=== PATIENT | female | born 2000 | race Caucasian/White ===

== ENCOUNTER 2022-10-27 19:53 | Outpatient (CLI) | payer BC, SELFPAY ==
--- OUTSIDE RECORDS SUMMARY | 2022-10-30 11:17 | XMS_ITS ---
:2000 Author Organization [facility] [address] [facility] [place] [id number] Care Team Providers Name Role Phone Lyla Barnes Unavailable Unavailable PROBLEMS Unknown Problems ALLERGIES Substance Reaction Event Type Date Status Sesame Seed (Diagnostic) Unknown Drug Allergy Jul, Act shira Tree Nuts Unknown Drug Allergy Jul, Active [place] Nuts Unknown Drug Allergy Jul, Active ENCOUNTERS Encounter Location Date Diagnosis [address] Jul, [place] [id number] [address] Jul, Encounter for other general [place] [id number] counselin g and advice on contraception Z3 [...] Interested in Nexplanon Insurance Providers [facility] Member Patient Patient Patient Patient Patient Subscriber Subscriber Subscriber Group Insurance Plan Plan Plan Plan ID Relationship Address Phone Name Date of ID Name Date of No Type Insurance Insurance Insurance Coverage to Subscriber Address Phone Name Dates BLUE [id number] [phone] BLUE self Juhi [id number] J [id number] [place] [phone]
== END 2022-10-27 19:54 | disposition home or self-care (01) ==
LOC: AMB 10-30 11:15
PROVIDERS: Visit Provider Emergency Medicine Emergency Medical Services
DX: R55 Syncope and collapse (principal)
CPT/HCPCS: A0425; A0427

== ENCOUNTER 2022-10-27 20:22 | Emergency (ER) | payer BC, SELFPAY ==
[2022-10-27 20:30] VITALS: BP 101/65; PULSE 92; RESP 16; TEMP 36.6; O2SAT 95; BMI 21.1
--- NOTE | 2022-10-27 21:04 | ED_ITS ---
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 Patient has a male friend with her this evening. They note that they were involved in a green party with a lot of alcohol last night. In fact he states that Juhi passed out in her own vomit when she went to bed. She woke at 0300 hours with vomiting and diarrhea. She notes that this has continued throughout the day. This is often a normal reaction for her after drinking heavily but it usually stops by noon. She states that she has tried to drink water and she immediately vomits it up. She notes that she is otherwise healthy but again states that she is prone to fainting. She has not had any fainting today. She denies a fever and states that she will get some cramping but no significant belly pain. She has been urinating but notes that that is actually decreased. She has not been on any recent antibiotics or travel. She denies a possibility of as she has an IUD in place. No blood in vomit or stool. EMS monitor has an automatic CO detector which showed her level to be high at 13. Interestingly she lives in the dorms and her significant other with her only registered a 1. She has no shortness of breath, normal coloring, no confusion. She has not been exposed to any recent heat source. There have been no other cases of vomiting or diarrhea in the dorms although they do state COVID has been going around. Associated nausea: Yes Related Data Home Medications Medication Instructions Recorded Confirmed bupropion HCl 100 mg tablet 100 mg PO ONCE 05/21/22 10/27/22 sertraline 50 mg tablet 50 mg PO QDAY 05/21/22 10/27/22 Previous Rx's Medication Instructions Recorded azithromycin 250 mg tablet See Rx Instructions PO .COMPLEX #6 07/30/22 tabs Allergies Allergy/AdvReac Type Severity Reaction Status Date / Time amoxicillin AdvReac Verified 10/27/22 20:34 SESAME SEEDS Allergy Unknown tingling Uncoded 07/29/22 12:17 mouth TREE NUTS Allergy Unknown mouth Uncoded 07/29/22 12:17 tingling Review of Systems Status of ROS: Reports: 10 or more systems reviewed and unremarkable except as noted in History and below Const: Denies: fever or chills Eyes: Denies: change in vision ENMT: Denies: throat pain, neck pain, throat swelling, difficulty swallowing or hoarseness Cardio: Reports: lightheadedness (When standing up); Denies: chest pain, palpitations, swelling of feet/ankles or shortness of breath with exertion Resp: Denies: shortness of breath, cough or wheezing GI: Reports: nausea, vomiting and diarrhea; Denies: abdominal pain, difficulty swallowing or blood in stool Musculo: Denies: neck pain Integ/Breast: Denies: rash Neuro: Denies: headache, numbness in extremities or weakness in extremities Endo: Denies: excessive urination or excessive thirst Allergy/Immuno: Denies: throat swelling or wheezing PFSH PFSH Medical History Otitis externa Otitis media Social History Smoking Status: Never smoker Second hand tobacco smoke exposure: No How often do you have a drink containing alcohol: never How often do you have six or more drinks on one occasion: Never AUDIT-C Alcohol total score: 0 Non-prescribed substance use: denies use Exam Narrative: Exam Narrative: Alert and oriented. No acute distress. Smiling laughing and interactive. Eyes are clear. Neck is supple. Heart with a regular rate and rhythm. Lungs are clear bilaterally. Abdomen soft nontender. Moving all extremities. Const: Vital Signs, click to edit/add: Vital Signs - 24 hr 10/27/22 20:30 10/27/22 20:30 10/27/22 21:25 Temperature 98 F 98 F Pulse Rate Pulse Rate [Right Pulse Oximeter] 92 89 Respiratory Rate 16 16 Blood Pressure Blood Pressure [Ri ght Upper Arm] 101/65 107/78 Pulse Oximetry 95 95 95 Oxygen Delivery Me thod Room Air Room Air 10/27/22 21:16 Temperature Pulse Rate 89 Pulse Rate [Right Pulse Oximeter] Respiratory Rate 16 Blood Pressure 106/64 Blood Pressure [Ri ght Upper Arm] Pulse Oximetry 95 Oxygen Delivery Me thod Documenting provider has reviewed patient's vital signs: yes Course Course Hospital Course: At this time will check basic panel for electrolyte abnormalities as well as c/o although I think that this is a monitor malfunction. Will give 2 L normal saline as well as Zofran 4 mg IV. Reevaluation(s) Reevaluation #1: Patient noted to be eating crackers and drinking her effervescent potassium. Is feeling a lot better at this time. Will proceed with 2 L. plan on discharge home. Vital Signs Vital signs: Initial Vital Signs Temperature 98 F 10/27/22 20:30 Temperature Source Temporal Artery Scan 10/27/22 20:30 Pulse Rate 92 10/27/22 20:30 Pulse Rhythm 10/27/22 20:30 Respiratory Rate 16 10/27/22 20:30 Blood Pressure 101/65 10/27/22 20:30 Blood Pressure Mean 77 10/27/22 20:30 Blood Pressure Position Sitting 10/27/22 20:30 Pulse Oximetry 95 10/27/22 20:30 Oxygen Delivery Method 10/27/22 20:30 Vital Signs Temperature 98 F 10/27/22 20:30 Pulse Rate 92 10/27/22 20:30 Respiratory Rate 16 10/27/22 20:30 Blood Pressure 101/65 10/27/22 20:30 Pulse Oximetry 95 10/27/22 20:30 Oxygen Delivery Method 10/27/22 20:30 Temperature 98 F 10/27/22 21:25 Pulse Rate 89 10/27/22 21:25 Respiratory Rate 16 10/27/22 21:25 Blood Pressure 107/78 10/27/22 21:25 Pulse Oximetry 95 10/27/22 21:25 Oxygen Delivery Method 10/27/22 21:25 MDM - Nausea/Vomiting/Diarrhea MDM Narrative Medical decision making narrative: 1. Vomiting and nausea-this certainly could be secondary to a viral sore such as gastroenteritis but more likely this is secondary to recent alcohol intake from last night. Patient given 2 L normal saline and Zofran. Patient able to tolerate fluids and food without difficulty. 2. Hypokalemia-50 mEq potassium effervescent given to patient. 3. Disposition-home with significant other. Suggest moderation when using alcohol. Return as needed for worsening symptoms. Note patient had normal carbon monoxide level 2.5%. Medical Records Attestation: I reviewed the patient's medical records. Lab Data Attestation: I reviewed the patient's lab results. Labs: Lab Results 10/27/22 10/27/22 Range/Units 20:50 20:50 Carboxyhemoglobin 2.5 (0.0-5.0) % Sodium 133 L (135-149) mmol/L Potassium 3.2 L (3.6-5.1) mmol/L Chloride 103 (96-114) mmol/L Carbon Dioxide 25 (20-32) mmol/L BUN 17 (5-24) mg/dL Creatinine 0.6 (0.5-1.5) mg/dL Estimated Creat Clear 153.15 Estimated GFR 132 ml/min Glucose 125 H (60-115) mg/dL Calcium 8.3 L (8.4-10.6) mg/dL Discharge Plan Discharge Clinical Impression: Nausea vomiting and diarrhea, Hangover effect, Hypokalemia Patient Disposition: Home, Self-Care Condition: Improved Additional Instructions: Consider using alcohol in moderation. Push fluids. Return as needed. Prescriptions: No Action sertraline 50 mg tablet 50 mg PO QDAY bupropion HCl 100 mg tablet 100 mg PO ONCE azithromycin 250 mg tablet See Rx Instructions PO .COMPLEX Qty: 6 0RF Rx Instructions: For 250 mg dose pack: take 500 mg today (day 1), then 250 mg for 4 days (days 2-5) PO Follow Up/Referrals: Provider,Not a Local [Primary Care Provider] - Stand Alone Forms: [employer] Info Instructions
[2022-10-27] MEDS: 0.9 % SODIUM CHLORIDE 1000 ml 1,000 ML IV ×2 (21:09→22:15)
[2022-10-27] MEDS: ONDANSETRON 2 MG/ML inj 4 MG IVP (21:10)
[2022-10-27 21:13] LABS: Carboxyhemoglobin* 2.5 % (0.0-5.0)
[2022-10-27 21:16] VITALS: BP 106/64; PULSE 89; RESP 16; O2SAT 95
[2022-10-27 21:25] VITALS: BP 107/78; PULSE 89; RESP 16; TEMP 36.6; O2SAT 95
--- OUTSIDE RECORDS SUMMARY | 2022-10-27 21:25 | XMS_ITS ---
:2000 Author Organization [facility] [address] [facility] [place] [id number] Care Team Providers Name Role Phone Lyla Barnes Unavailable Unavailable PROBLEMS Unknown Problems ALLERGIES Substance Reaction Event Type Date Status Sesame Seed (Diagnostic) Unknown Drug Allergy Jul, Act shira Tree Nuts Unknown Drug Allergy Jul, Active [place] Nuts Unknown Drug Allergy Jul, Active ENCOUNTERS Encounter Location Date Diagnosis [address] Jul, [place] [id number] [address] Jul, Encounter for other general [place] [id number] counselin g and advice on contraception Z3 0.09 IMMUNIZATIONS No Known Immunizations SOCIAL HISTORY Qualifiers Date Never Smoker REASON FOR REFERRAL FUNCTIONAL STATUS PLAN OF CARE Activity Details Follow Up prn Reason: VITAL SIGNS Height 68.5 in 2021-08-10 Weight 144 lbs 2021-08-10 BMI 21.57 kg/m2 2021-08-10 Blood pressure systolic 110 mm Hg 2021-08-10 Blood pressure diastolic 60 mm Hg 2021-08-10 MEDICATIONS Medication Instructions Dosage Frequency Start End Duration Statu s Date Date EPINEPHrine as directed Active (Anaphylaxis) 30 MG/30ML Ortho Orally Once a 1 tablet 24h 28 day(s) Active Tri-Cyclen Lo day 0.18/0.215/0.25 MG-25 MCG Sertraline HCl Orally Once a 1 tablet 24h 30 day(s) Active 50 MG day Vitamin D-3 25 Orally Once a 1 capsule 24h 30 day(s) Active MCG (1000 UT) day PROCEDURES No Known procedures RESULTS No Results REASON FOR VISIT nexplanon insertion, Nexplanon, Interested in Nexplanon Insurance Providers [facility] Member Patient Patient Patient Patient Patient Subscriber Subscriber Subscriber Group Insurance Plan Plan Plan Plan ID Relationship Address Phone Name Date of ID Name Date of No Type Insurance Insurance Insurance Coverage to Subscriber Address Phone Name Dates BLUE [id number] [phone] BLUE self Juhi [id number] J [id number] [place] [phone]
[2022-10-27 21:30] LABS: Chloride* 103 mmol/L (96-114)
[2022-10-27 21:31] VITALS: BP 102/62; PULSE 83; O2SAT 96
[2022-10-27 21:31] LABS: Potassium* 3.2 mmol/L (3.6-5.1); Sodium* 133 mmol/L (135-149)
[2022-10-27 21:34] LABS: Blood Urea Nitrogen* 17 mg/dL (5-24); Calcium* 8.3 mg/dL (8.4-10.6); Carbon Dioxide* 25 mmol/L (20-32); Creatinine* 0.6 mg/dL (0.5-1.5); Est. Creatinine Clearance* 153.15; Estimated Glomerular Filt Rate 132 ml/min; Glucose* 125 mg/dL (60-115)
[2022-10-27 22:02] VITALS: BP 94/41; PULSE 83; O2SAT 96
[2022-10-27] MEDS: POTASSIUM BICARB 25 MEQ EFFERVESCENT TAB 50 MEQ PO (22:37)
--- NOTE | 2022-10-27 22:50 | ED.NURSE ---
patient up walking in room, denies dizzy or light headed, pt states she feels much better and requesting to dc, fluids completed.
[2022-10-27 22:52] VITALS: BP 101/57; PULSE 76; RESP 16
== END 2022-10-27 22:52 | disposition home or self-care (01) ==
PROVIDERS: Emergency Provider Family Medicine
DX: R11.2 Nausea with vomiting, unspecified (principal); E87.6 Hypokalemia; F10.129 Alcohol abuse with intoxication, unspecified
CPT/HCPCS: 36415; 80048; 82375; 94761; 96374; 99283; A9270; J2405; J7030

== ENCOUNTER 2022-11-19 18:40 | Emergency (ER) | payer BC, SELFPAY ==
[2022-11-19] VITALS (20 sets, daily range): BP systolic 101–125; BP diastolic 60–77; PULSE 72–88; RESP 16; O2SAT 96–100; BMI 21.4
[2022-11-19] MEDS: EPINEPHrine 0.3 MG PEN IM (18:50)
--- NOTE | 2022-11-19 18:50 | ED_ITS ---
HPI - Allergic Reaction General Time Seen by Provider: 18:50 Date Seen: 11/19/22 Chief complaint: Allergic Reaction Stated complaint: Allergic Reaction Time Seen by Provider: 11/19/22 18:40 Source: patient and RN notes reviewed Mode of arrival: ambulatory Limitations: no limitations History of Present Illness HPI narrative: Patient was seen at request of nursing staff due to allergic reaction right after arrival. Patient was eating out and unfortunately accidentally ate some sesame seeds which she is allergic to. Her face started flushing immediately, became nauseated in did have an emesis. She developed hives, felt like her throat was itchy. She never had any hoarse voice, did not feel like she was having any difficulty breathing. Did not feel like her tongue was swollen. Her nausea has improved since she threw up. She did have an EpiPen with her but they did not administer it. She has not taken anything for this allergic reaction. She has had this allergy since childhood. complaint: allergic reaction and hives Onset (ago): minute(s) Exposure: food Known history of allergy to: Sesame seeds Symptoms: rash, itching, nausea and vomiting Severity: moderate Treatment prior to arrival: none Related Data Home Medications Medication Instructions Recorded Confirmed bupropion HCl 100 mg tablet 100 mg PO ONCE 05/21/22 10/27/22 sertraline 50 mg tablet 50 mg PO QDAY 05/21/22 10/27/22 Previous Rx's Medication Instructions Recorded azithromycin 250 mg tablet See Rx Instructions PO .COMPLEX #6 07/30/22 tabs prednisone 20 mg tablet 20 mg PO BID #6 tabs 11/19/22 Allergies Allergy/AdvReac Type Severity Reaction Status Date / Time amoxicillin AdvReac Verified 10/27/22 20:34 SESAME SEEDS Allergy Unknown tingling Uncoded 07/29/22 12:17 mouth TREE NUTS Allergy Unknown mouth Uncoded 07/29/22 12:17 tingling Review of Systems Status of ROS Reports: 6 or more systems reviewed and unremarkable except as noted in History and below [facility] Medical History Otitis externa Otitis media Social History Smoking Status: Current some day smoker Second hand tobacco smoke exposure: No How often do you have a drink containing alcohol: monthly or less How often do you have six or more drinks on one occasion: Never AUDIT-C Alcohol total score: 1 Non-prescribed substance use: marijuana (any form) Exam Const: Vital Signs, click to edit/add: Vital Signs - 24 hr 11/19/22 18:46 11/19/22 19:01 11/19/22 19:05 Pulse Rate 77 Pulse Rate [Pulse Oximeter] 72 Respiratory Rate 16 Blood Pressure 117/72 Blood Pressure [Ri ght Upper Arm] 125/77 Pulse Oximetry 99 98 100 Oxygen Delivery Me thod Room Air 11/19/22 19:06 11/19/22 19:15 11/19/22 19:17 Pulse Rate 84 82 81 Pulse Rate [Pulse Oximeter] Respiratory Rate Blood Pressure 109/65 Blood Pressure [Ri ght Upper Arm] Pulse Oximetry 100 100 100 Oxygen Delivery Me thod 11/19/22 19:18 11/19/22 19:30 11/19/22 19:32 Pulse Rate 83 88 88 Pulse Rate [Pulse Oximeter] Respiratory Rate Blood Pressure 115/65 Blood Pressure [Ri ght Upper Arm] Pulse Oximetry 100 100 100 Oxygen Delivery Me thod 11/19/22 19:45 11/19/22 19:47 11/19/22 20:00 Pulse Rate 86 86 82 Pulse Rate [Pulse Oximeter] Respiratory Rate Blood Pressure 102/60 Blood Pressure [Ri ght Upper Arm] Pulse Oximetry 100 100 98 Oxygen Delivery Me thod 11/19/22 20:02 11/19/22 20:03 11/19/22 20:15 Pulse Rate 76 78 78 Pulse Rate [Pulse Oximeter] Respiratory Rate Blood Pressure 102/62 Blood Pressure [Ri ght Upper Arm] Pulse Oximetry 99 99 97 Oxygen Delivery Me thod 11/19/22 20:17 11/19/22 20:30 Pulse Rate 79 81 Pulse Rate [Pulse Oximeter] Respiratory Rate Blood Pressure 105/61 Blood Pressure [Ri ght Upper Arm] Pulse Oximetry 96 97 Oxygen Delivery Me thod Patient is a 22-year-old female that is alert and interactive, she is able to speak and has no hoarseness. She has no stridor, no wheezing. Face is erythematous but pupils equal round reactive, sclera clear. She has erythematous change onto her chest, on her arms and torso there is some erythema but there is also some discrete your urticarial lesions. She has your urticarial lesions on her arms. Lips do not look swollen, tongue looks normal, posterior pharynx looks normal. Neck is supple without masses. Lungs are clear with good air entry, no wheezing or crackles. CV regular rate and rhythm no murmur. Abdomen is soft nontender nondistended no organomegaly. Patient was ambulatory into the ED of her own accord. Documenting provider has reviewed patient's vital signs: yes Course Course Hospital Course: Nursing staff had her on pulse oximetry immediately, cardiac monitoring was hooked up as soon as it could be. One of the nurses was working on establishing an IV, a 2nd nurse administered 0.3 mg epi via EpiPen. Once the IV was in place, a L of normal saline was started, 25 mg of the 50 mg of Benadryl that was drawn up was given, will reassess for the 2nd half of the Benadryl within 30 minutes. She was given 125 mg IV Solu-Medrol, will also order 20 mg IV Pepcid. With the in 5-10 minutes of administering the EpiPen, seemed like some of the facial erythema in the your urticaria was starting to fade. She definitely was not feeling worse. Reevaluation(s) Reevaluation #1: Re-evaluation of patient shows her to have no facial erythema. She states the tingling in her throat is gone. The your urticarial rash an underlying erythema is nearly gone. She may have a few faint pink spots on her torso but she overall is feeling much better. Time: 19:24 Reevaluation #2: Patient's symptoms have completely resolved. She would like to discharge to home. She lives in [facility], we have discussed rebound phenomena that can happen anywhere from 2-6 hours after. She has an EpiPen available to her. I feel comfortable discharging her to home, she has been counseled on rebound phenomenon. Time: 20:45 Vital Signs Vital signs: Initial Vital Signs Pulse Rate 72 11/19/22 18:46 Respiratory Rate 16 11/19/22 18:46 Blood Pressure 125/77 11/19/22 18:46 Blood Pressure Mean 93 11/19/22 18:46 Blood Pressure Position Sitting 11/19/22 18:46 Pulse Oximetry 99 11/19/22 18:46 Oxygen Delivery Method Room Air 11/19/22 18:46 Vital Signs Pulse Rate 72 11/19/22 18:46 Respiratory Rate 16 11/19/22 18:46 Blood Pressure 125/77 11/19/22 18:46 Pulse Oximetry 99 11/19/22 18:46 Oxygen Delivery Method Room Air 11/19/22 18:46 Pulse Rate 81 11/19/22 20:30 Respiratory Rate 16 11/19/22 18:46 Blood Pressure 105/61 11/19/22 20:17 Pulse Oximetry 97 11/19/22 20:30 Oxygen Delivery Method Room Air 11/19/22 18:46 Critical Care Time Critical Care Time Total Critical Care Time in Minutes: 30 Discharge Plan Discharge Clinical Impression: Allergic reaction Patient Disposition: Home, Self-Care Condition: Stable Instructions: Food Allergy (ED), Anaphylaxis (ED) Additional Instructions: Start oral prednisone tomorrow and take for 3 days. If any return rash or hives, initiate Benadryl. If you have return of allergic reaction symptoms be yond rash, such as the throat tingling, gastrointestinal symptoms of nausea vomiting, any sense of difficulty breathing, would recommend repeating EpiPen and seeking emergent medical attention. In the future, should administer epinephrine you are having severe allergy as we discussed. Activity Level: Activity as Tolerated Prescriptions: New prednisone 20 mg tablet 20 mg PO BID Qty: 6 0RF No Action sertraline 50 mg tablet 50 mg PO QDAY bupropion HCl 100 mg tablet 100 mg PO ONCE azithromycin 250 mg tablet See Rx Instructions PO .COMPLEX Qty: 6 0RF Rx Instructions: For 250 mg dose pack: take 500 mg today (day 1), then 250 mg for 4 days (days 2-5) PO Follow Up/Referrals: Provider,Not a Local [Primary Care Provider] - Stand Alone Forms: [employer] Info Instructions
[2022-11-19] MEDS: diphenhydrAMINE 50 MG/ML inj IVP (18:55)
[2022-11-19] MEDS: METHYLPREDNISOLONE SOD SUCC 62.5 MG/ML (125) 125 MG IVP (19:00)
[2022-11-19] MEDS: 0.9 % SODIUM CHLORIDE 1000 ml 1,000 ML IV (19:00)
[2022-11-19] MEDS: FAMOTIDINE 10 MG/ML inj 20 MG IVP (19:15)
--- OUTSIDE RECORDS SUMMARY | 2022-11-19 19:35 | XMS_ITS ---
Author Name Lyla Barnes Address [address] [place], [place] [phone] Organization [facility] Address [address] [place], [place] [phone] Care Team Providers Care Dust Mop Maker Name Role Phone Lyla Barnes Unavailable [phone] PROBLEMS Unknown Problems ALLERGIES Substance Reaction Event Type Date Status Sesame Seed (Diagnostic) Unknown Drug Allergy Jul, Active Tree Nuts Unknown Drug Allergy Jul, Active [place] Nuts Unknown Drug Allergy Jul, Active ENCOUNTERS Encounter Location Date Diagnosis [address] [id number] Jul, [address] [id number] Jul, Encounter for other general counseling and advice on contraception Z30.09 IMMUNIZATIONS No Known Immunizations SOCIAL HISTORY Qualifiers Date Never Smoker REASON FOR REFERRAL FUNCTIONAL STATUS PLAN OF CARE Activity Details VITAL SIGNS Height 68.5 in 2021-08-10 Weight 144 lbs 2021-08-10 BMI 21.57 kg/m2 2021-08-10 Blood pressure systolic 110 mm Hg Blood pressure diastolic 60 mm Hg 2021-07 MEDICATIONS Medication Instructions Dosage Frequency Start Date End Date Duration Status EPINEPHrine (Anaphylaxis) 30 MG/30ML as directed Active Ortho Tri-Cyclen Lo 0.18/0.215/0.25 MG-25 MCG Orally Once a day 1 tablet 24h 28 day(s) Active Sertraline HCl 50 MG Orally Once a day 1 tablet 24h 30 day(s) Active Vitamin D-3 25 MCG (1000 UT) Orally Once a day 1 capsule 24h 30 day(s) Active PROCEDURES No Known procedures RESULTS No Results REASON FOR VISIT nexplanon insertion, Nexplanon, Interested in Nexplanon Insurance Providers Health Insurance Type Health Plan Insurance Address Health Plan Insurance Phone Health Plan Insurance Name Health Plan Coverage Dates Member ID Patient Relationship to Subscriber Patient Address Patient Phone Patient Name Patient Date of Subscriber ID Subscriber Name Subscriber Date of Group No [facility] [id number] [facility] [id number] [facility] self Juhi Tan [id number]
== END 2022-11-19 20:58 | disposition home or self-care (01) ==
PROVIDERS: Emergency Provider Family Medicine
DX: T78.1XXA Other adverse food reactions, not elsewhere classified, initial encounter (principal); R23.2 Flushing
CPT/HCPCS: 94761; 96372; 96374; 96375; 99284; 99291; J0171; J1200; J2930; J7030; S0028